=== PATIENT | female | born 1995 | race African-American/Black ===

== ENCOUNTER 2018-10-11 11:58 | Outpatient (CLI) | payer OTHER | END 2018-10-11 13:53 | disposition home or self-care (01) | LOC: OBT 11:58 → L-D 11:58 → OBT 13:53 | DX: O40.3XX0 Polyhydramnios, third trimester, not applicable or unspecified (principal); O36.8130 Decreased fetal movements, third trimester, not applicable or unspecified; Z3A.38 38 weeks gestation of pregnancy | CPT/HCPCS: 76815; 76818 ==

== ENCOUNTER 2018-10-15 13:48 | Outpatient (CLI) | payer OTHER | END 2018-10-15 15:45 | disposition home or self-care (01) | LOC: OBT 13:48 → L-D 13:49 → OBT 15:45 | DX: O40.3XX0 Polyhydramnios, third trimester, not applicable or unspecified (principal); Z3A.39 39 weeks gestation of pregnancy | CPT/HCPCS: 76818 ==

== ENCOUNTER 2018-10-17 13:10 | Outpatient (CLI) | payer OTHER | END 2018-10-17 15:48 | disposition home or self-care (01) | LOC: OBT 13:10 → L-D 13:10 → OBT 15:48 | DX: O62.9 Abnormality of forces of labor, unspecified (principal); Z3A.39 39 weeks gestation of pregnancy | CPT/HCPCS: 76818 ==

== ENCOUNTER 2018-10-21 02:17 | Inpatient (IN) | payer OTHER ==
[2018-10-21] MEDS ORDERED: CARBOPROST 250 MCG INJ IM ×2 (03:00→08:00)
[2018-10-21] MEDS ORDERED: IBUPROFEN 600 MG TAB PO (03:00)
[2018-10-21] MEDS ORDERED: LIDOCAINE 1% (MPF) 30 ML INJ INJ (03:00)
[2018-10-21] MEDS ORDERED: OXYCODONE/ACETAMINOPHEN (5/325) TAB PO (03:00)
[2018-10-21] MEDS ORDERED: METHYLERGONOVINE 0.2 MG INJ IM ×2 (03:00→08:00)
[2018-10-21] MEDS ORDERED: OXYTOCIN 30 UNITS/LR 500 ML IV ×3 (03:00→08:00)
[2018-10-21] MEDS ORDERED: MISOPROSTOL 200 MCG TAB PR ×2 (03:00→08:00)
[2018-10-21] MEDS: LACTATED RINGER'S 1,000 ML IV ×2 (03:10→03:52)
[2018-10-21 03:25] LABS: ADD MAN DIFF? NO
[2018-10-21 03:26] LABS: WHITE BLOOD COUNT 14.4 10^3/ul (4.8-10.8)
[2018-10-21 03:26] LABS: BASOPHIL # 0.1 10^3/ul (0.0-0.1); BASOPHILS % 0.3 % (0.0-2.0); EOSINOPHILS # 0.1 10^3/ul (0.0-0.5); EOSINOPHILS % 0.9 % (0.0-7.0); HEMATOCRIT 40.2 % (37.0-47.0); HEMOGLOBIN 13.7 g/dl (12.0-16.0); LYMPHOCYTES # 3.1 10^3/ul (0.8-2.9); LYMPHOCYTES % 21.3 % (15.0-51.0); MEAN CORPUSCULAR HEMOGLOBIN 31.7 pg (29.0-33.0); MEAN CORPUSCULAR HGB CONC 34.1 g/dl (32.0-37.0); MEAN CORPUSCULAR VOLUME 93.1 fl (82.0-101.0); MEAN PLATELET VOLUME 10.4 fl (7.4-10.4); MONOCYTE # 1.1 10^3/ul (0.3-0.9); MONOCYTES % 7.4 % (0.0-11.0); NEUTROPHIL # 9.9 10^3/ul (1.6-7.5); PLATELET COUNT 196 10^3/UL (140-415); RED BLOOD COUNT 4.32 10^6/ul (4.20-5.40); RED CELL DISTRIBUTION WIDTH 11.9 % (11.5-14.5)
[2018-10-21 03:52] LABS: INR 0.86; PROTIME 11.8 Sec (11.9-14.9); PT RATIO 0.9
[2018-10-21 03:53] LABS: PARTIAL THROMBOPLASTIN TIME 25.2 Sec (23.0-35.0)
[2018-10-21 04:14] LABS: HEPATITIS B SURFACE ANTIGEN NEGATIVE (NEGATIVE)
[2018-10-21] MEDS: BUTORPHANOL 2 MG INJ IV (04:30)
[2018-10-21] MEDS ORDERED: FENTAnyl 2MCG/ML-ROPIV 0.2% 100 ML (04:56)
[2018-10-21] MEDS ORDERED: FENTAnyl 2MCG/ML-ROPIV 0.2% 100 ML BAG EPI (05:30)
[2018-10-21] MEDS ORDERED: NALOXONE (0.4 MG/ML) INJ IV (05:30)
[2018-10-21] MEDS ORDERED: ONDANSETRON 4 MG INJ IV ×2 (05:30→08:00)
[2018-10-21] MEDS: DEXTROSE 5%-LR 1,000 ML IV ×2 (07:31→15:31)
[2018-10-21] MEDS: OXYTOCIN 30 UNITS/LR 500 ML IV ×2 (07:46→07:48)
[2018-10-21] MEDS ORDERED: DIPHENHYDRAMINE 50 MG INJ IV (08:00)
[2018-10-21] MEDS ORDERED: ACETAMINOPHEN 325 MG TAB PO (08:00)
[2018-10-21] MEDS ORDERED: ZOLPIDEM 5 MG TAB PO (08:00)
[2018-10-21] MEDS ORDERED: LANOLIN HPA 1 PKT TOP (08:00)
[2018-10-21 08:23] LABS: AMPHETAMINE/METHAMPHETAMINE Negative (NEGATIVE); BARBITURATES Negative (NEGATIVE); BENZODIAZEPINES Negative (NEGATIVE); CANNABINOIDS Negative (NEGATIVE); COCAINE Negative (NEGATIVE); OPIATES Negative (NEGATIVE)
[2018-10-21] MEDS: BENZOCAINE 20% 56 ML SPRAY TOP (11:02)
[2018-10-21] MEDS: LACTATED RINGER'S 1,000 ML IV* ×2 (11:03→15:31)
[2018-10-21] MEDS: WITCH HAZEL/GLYCERIN PAD PR (11:03)
[2018-10-21] MEDS: IBUPROFEN 600 MG TAB PO ×2 (12:24→18:00)
[2018-10-21] MEDS: OXYCODONE/ASPIRIN (4.88/325) TAB PO (14:43)
[2018-10-21] MEDS: DIBUCAINE 1% 30 GM OINT TOP (14:44)
[2018-10-21 16:21] LABS: RAPID PLASMA REAGIN NONREACTIVE (NR)
[2018-10-22] MEDS: IBUPROFEN 600 MG TAB PO ×5 (00:07→23:42)
[2018-10-22 06:38] LABS: ADD MAN DIFF? NO
[2018-10-22 06:42] LABS: WHITE BLOOD COUNT 15.7 10^3/ul (4.8-10.8)
[2018-10-22 06:42] LABS: BASOPHILS % 0.3 % (0.0-2.0); EOSINOPHILS # 0.1 10^3/ul (0.0-0.5); EOSINOPHILS % 0.4 % (0.0-7.0); HEMATOCRIT 33.7 % (37.0-47.0); HEMOGLOBIN 11.2 g/dl (12.0-16.0); LYMPHOCYTES % 19.1 % (15.0-51.0); MEAN CORPUSCULAR HEMOGLOBIN 31.7 pg (29.0-33.0); MEAN CORPUSCULAR HGB CONC 33.2 g/dl (32.0-37.0); MEAN CORPUSCULAR VOLUME 95.5 fl (82.0-101.0); MEAN PLATELET VOLUME 10.2 fl (7.4-10.4); MONOCYTE # 1.2 10^3/ul (0.3-0.9); MONOCYTES % 7.5 % (0.0-11.0); NEUTROPHIL # 11.2 10^3/ul (1.6-7.5); NEUTROPHILS % 71.7 % (39.0-77.0); PLATELET COUNT 152 10^3/UL (140-415); RED BLOOD COUNT 3.53 10^6/ul (4.20-5.40); RED CELL DISTRIBUTION WIDTH 12.6 % (11.5-14.5)
[2018-10-22] MEDS: SENNA/DOCUSATE NA (8.6MG/50MG) TAB PO (15:35)
[2018-10-22] MEDS: DIPHTH/TET/ACEL PERTUSS (ADULT) 0.5 ML VIAL IM* (16:27)
[2018-10-23] MEDS: IBUPROFEN 600 MG TAB PO ×2 (05:30→11:58)
[2018-10-23] MEDS: MEASLES,MUMPS,RUBELLA VACCINE INJ SC* (09:49)
[2018-10-23] MEDS: WITCH HAZEL/GLYCERIN PAD PR (12:18)
== END 2018-10-23 12:40 | disposition home or self-care (01) | DRG 807 ==
LOC: OBT 02:17 → L-D 02:24 → OBT 02:50 → L-D 02:50 → PP1 09:11
PROVIDERS: Obstetrics & Gynecology
PROC: 10E0XZZ Delivery of Products of Conception, External Approach (ICD-10-PCS; principal; 2018-10-21)
DX: O69.1XX0 Labor and delivery complicated by cord around neck, with compression, not applicable or unspecified (principal); Z37.0 Single live birth; Z3A.40 40 weeks gestation of pregnancy
CPT/HCPCS: 62319; 80307; 85025; 85610; 85730; 86592; 86850; 86900; 86901; 87340; 99464